=== PATIENT | female | born 1995 | race African-American/Black ===

== ENCOUNTER 2017-06-23 15:57 | Emergency (ER) | payer BC | END 2017-06-23 17:54 | disposition home or self-care (01) | LOC: D.ER 15:57 | DX: J11.1 Influenza due to unidentified influenza virus with other respiratory manifestations (principal); E11.9 Type 2 diabetes mellitus without complications; Z79.4 Long term (current) use of insulin ==

== ENCOUNTER 2019-03-20 11:59 | Emergency (ER) | payer SELFPAY ==
[~2019-03-20] VITALS: Ht 157.5 cm; Wt 72.5 kg
[2019-03-20 12:03] VITALS: BP 130/69; Ht 157.5 cm; Wt 72.5 kg
[2019-03-20 13:26] LABS: HCG SERUM NEGATIVE (NEGATIVE)
[2019-03-20 13:33] LABS: ALBUMIN 3.2 g/dL (3.4-5.0); ANION GAP 13.4 mmol/L (8-16); BILIRUBIN - TOTAL 0.17 mg/dL (0.2-1.3); CALCIUM 8.6 mg/dL (8.5-10.1); CARBON DIOXIDE 27.2 mmol/L (21.0-32.0); POTASSIUM - SERUM 4.6 mmol/L (3.5-5.1); PROTEIN - SERUM 7.4 g/dL (6.4-8.2)
[2019-03-20 13:57] LABS: BASOPHILS 0.3 % (0-2); EOSINOPHILS 2.9 % (0-7); HEMATOCRIT 38.8 % (36.0-48.0); HEMOGLOBIN 12.9 g/dL (12-16); IMMATURE GRANULOCYTES 0.3 % (0-5); MCH 29.3 pg (26.0-34.0); MCHC 33.2 g/dL (31.0-37.0); MONOCYTES 7.8 % (2-11); NEUTROPHILS 58.7 % (40-80); PLATELET COUNT 368 10x3/uL (130-400); RBC 4.41 10x6/uL (4.00-5.40); RDW 13.6 % (11.5-14.5); WBC 8.9 10x3/uL (4.8-10.8)
[2019-03-20 14:21] LABS: APPEARANCE HAZY (CLEAR); COLOR STRAW (YELLOW)
[2019-03-20 14:22] LABS: BILIRUBIN NEGATIVE (NEGATIVE); GLUCOSE 1000 mg/dL (NEGATIVE); KETONE NEGATIVE (NEGATIVE); NITRITE NEGATIVE (NEGATIVE); PROTEIN NEGATIVE (NEGATIVE); UROBILINOGEN NORMAL (NORMAL)
[2019-03-20 14:23] LABS: BACTERIA FEW /hpf (NEGATIVE); EPITHELIAL CELLS 0-5 /hpf (0-5); RED CELLS - URINE 0-5 /hpf (0-5); WHITE CELLS - URINE 0-5 /hpf (NEGATIVE); YEAST <1+ /hpf (NONE SEEN)
[2019-03-21 09:11] LABS: HEPATITIS C ANTIBODY <0.1 S/CO RAT (0.0-0.9)
[2019-03-23 17:08] LABS: CHLAMYDIA TRACHOMATIS, NAA Positive (Negative)
== END 2019-03-20 14:04 | disposition left against medical advice (07) ==
LOC: D.ER 11:59
PROVIDERS: Family Medicine
DX: Z20.2 Contact with and (suspected) exposure to infections with a predominantly sexual mode of transmission (principal)

== ENCOUNTER 2020-08-28 19:20 | Emergency (ER) | payer BC ==
[~2020-08-28] VITALS: Ht 157.5 cm; Wt 82.3 kg
[~2020-08-28 19:20] MED LIST: KEFLEX500 MG PO; LANTUS INS100 UNITS/ SC; LISINOPRIL10 MG PO
[2020-08-28 19:41] VITALS: Ht 157.5 cm; Wt 82.3 kg
[2020-08-28 20:12] LABS: UDS - AMPHET NEGATIVE QUAL (NEGATIVE); UDS - BARB NEGATIVE QUAL (NEGATIVE); UDS - BENZO NEGATIVE QUAL (NEGATIVE); UDS - COCAINE NEGATIVE QUAL (NEGATIVE); UDS - OPIATE NEGATIVE QUAL (NEGATIVE); UDS - PCP NEGATIVE QUAL (NEGATIVE); UDS - THC POSITIVE QUAL (NEGATIVE)
[2020-08-28 20:38] LABS: BILIRUBIN NEGATIVE (NEGATIVE); KETONE NEGATIVE (NEGATIVE); NITRITE NEGATIVE (NEGATIVE); UROBILINOGEN NORMAL mg/dL (< 2)
[2020-08-28 20:40] LABS: BACTERIA FEW HPF (NONE SEEN); SQUAMOUS EPITHELIAL 0-5 HPF (0-4); WHITE CELLS - URINE 0-5 HPF (0-4)
[2020-08-28 21:00] LABS: BASOPHILS 0.2 % (0-2); EOSINOPHILS 4.3 % (0-7); HEMOGLOBIN 11.9 g/dL (12-16); IMMATURE GRANULOCYTES 0.3 % (0-5); LYMPHOCYTE ABS# 3.12 10x3/uL (1.18-3.74); LYMPHOCYTES 32.4 % (15-50); MCH 27.8 pg (26.0-34.0); MCHC 33.1 g/dL (31.0-37.0); MCV 84.1 fL (80.0-100.0); MONOCYTES 6.5 % (2-11); NEUTROPHIL ABS# 5.43 10x3/uL (1.56-6.13); NEUTROPHILS 56.3 % (40-80); RBC 4.28 10x6/uL (4.00-5.40); RDW 14.7 % (11.5-14.5); WBC 9.6 10x3/uL (4.8-10.8)
[2020-08-28 21:16] LABS: HCG SERUM NEGATIVE (NEGATIVE)
[2020-08-28 21:18] LABS: PLATELET COUNT 350 10x3/uL (130-400)
[2020-08-28 21:19] LABS: ALBUMIN 2.5 g/dL (3.4-5.0); ANION GAP 11.1 mmol/L (8-16); CALCIUM 8.8 mg/dL (8.5-10.1); CARBON DIOXIDE 26.1 mmol/L (21.0-32.0); MAGNESIUM - SERUM 1.9 mg/dL (1.8-2.4); POTASSIUM - SERUM 4.2 mmol/L (3.5-5.1); PROTEIN - SERUM 6.7 g/dL (6.4-8.2)
[2020-08-28 21:23] LABS: BILIRUBIN - TOTAL 0.07 mg/dL (0.2-1.3)
[2020-08-28 21:48] VITALS: BP 161/96
== END 2020-08-28 22:17 | disposition home or self-care (01) ==
LOC: D.ER 19:20
PROVIDERS: Family Medicine
DX: E11.65 Type 2 diabetes mellitus with hyperglycemia (principal); I10 Essential (primary) hypertension; Z91.14 Patient's other noncompliance with medication regimen; Z79.4 Long term (current) use of insulin

== ENCOUNTER 2020-09-26 17:06 | Emergency (ER) | payer BC ==
[~2020-09-26] VITALS: Ht 157.5 cm; Wt 84.1 kg
[2020-09-26 17:25] VITALS: Ht 157.5 cm; Wt 84.1 kg
[2020-09-26 18:12] LABS: BASOPHILS 0.3 % (0-2); EOSINOPHILS 3.4 % (0-7); HEMATOCRIT 31.9 % (36.0-48.0); HEMOGLOBIN 10.8 g/dL (12-16); IMMATURE GRANULOCYTES 0.2 % (0-5); LYMPHOCYTES 28.5 % (15-50); MCH 28.4 pg (26.0-34.0); MCHC 33.9 g/dL (31.0-37.0); MCV 83.9 fL (80.0-100.0); MEAN PLATELET VOLUME 10.5 fL (7.4-10.4); NEUTROPHIL ABS# 5.43 10x3/uL (1.56-6.13); NEUTROPHILS 59.6 % (40-80); PLATELET COUNT 325 10x3/uL (130-400); RDW 14.1 % (11.5-14.5); WBC 9.1 10x3/uL (4.8-10.8)
[2020-09-26 18:22] LABS: ALBUMIN 2.3 g/dL (3.4-5.0); BILIRUBIN - TOTAL 0.11 mg/dL (0.2-1.3); CALCIUM 8.4 mg/dL (8.5-10.1); CARBON DIOXIDE 29.1 mmol/L (21.0-32.0); POTASSIUM - SERUM 4.1 mmol/L (3.5-5.1); PROTEIN - SERUM 6.3 g/dL (6.4-8.2)
[2020-09-26 18:52] LABS: BILIRUBIN NEGATIVE (NEGATIVE); KETONE NEGATIVE (NEGATIVE); NITRITE NEGATIVE (NEGATIVE); UROBILINOGEN NORMAL mg/dL (< 2)
[2020-09-26 18:53] LABS: BACTERIA FEW HPF (NONE SEEN); HCG URINE NEGATIVE (NEGATIVE); SQUAMOUS EPITHELIAL 0-5 HPF (0-4)
[2020-09-26] MEDS ORDERED: OMNICEF300 MG PO (19:23)
[2020-09-26] MEDS ORDERED: LANTUS INS100 UNITS/ SC (19:23)
[2020-09-26 20:39] VITALS: BP 178/111
== END 2020-09-26 20:25 | disposition home or self-care (01) ==
LOC: D.ER 17:06
PROVIDERS: Family Medicine
DX: E11.65 Type 2 diabetes mellitus with hyperglycemia (principal); N39.0 Urinary tract infection, site not specified; Z91.14 Patient's other noncompliance with medication regimen; I10 Essential (primary) hypertension; Z79.4 Long term (current) use of insulin

== ENCOUNTER 2020-10-06 13:33 | Emergency (ER) | payer BC ==
[~2020-10-06] VITALS: Ht 157.5 cm; Wt 81.8 kg
[~2020-10-06 13:33] MED LIST changes: +OMNICEF300 MG PO
[2020-10-06 13:57] VITALS: Ht 157.5 cm; Wt 81.8 kg
[2020-10-06 15:03] LABS: BASOPHILS 0.3 % (0-2); EOSINOPHILS 0.9 % (0-7); HEMATOCRIT 35.5 % (36.0-48.0); HEMOGLOBIN 12.3 g/dL (12-16); IMMATURE GRANULOCYTES 0.3 % (0-5); LYMPHOCYTE ABS# 1.76 10x3/uL (1.18-3.74); LYMPHOCYTES 15.1 % (15-50); MCH 28.8 pg (26.0-34.0); MCHC 34.6 g/dL (31.0-37.0); MCV 83.1 fL (80.0-100.0); MEAN PLATELET VOLUME 10.9 fL (7.4-10.4); MONOCYTES 4.4 % (2-11); NEUTROPHIL ABS# 9.17 10x3/uL (1.56-6.13); RBC 4.27 10x6/uL (4.00-5.40); RDW 13.7 % (11.5-14.5); WBC 11.6 10x3/uL (4.8-10.8)
[2020-10-06 15:04] LABS: PLATELET COUNT 500 10x3/uL (130-400)
[2020-10-06 15:35] LABS: ALBUMIN 2.7 g/dL (3.4-5.0); ALKALINE PHOSPHATASE 105 U/L (30-120); ALT (SGPT) 22 U/L (10-68); BILIRUBIN - TOTAL 0.26 mg/dL (0.2-1.3); CALC OSMOLALITY 303 mosm/kg (275-300); CALCIUM 9.4 mg/dL (8.5-10.1); CARBON DIOXIDE 25.1 mmol/L (21.0-32.0); CHLORIDE - SERUM 104 mmol/L (98-107); CREATININE - SERUM 0.9 mg/dL (0.6-1.3); HCG - QUANTITATIVE (MATERNAL) 0 mIU/mL; MAGNESIUM - SERUM 1.9 mg/dL (1.8-2.4); SODIUM 141 mmol/L (136-145); UREA NITROGEN 19 mg/dL (7-18); eGFR NON AFRICAN AMERICAN 81 mL/min (90-120)
[2020-10-06 15:44] LABS: GLUCOSE 472 mg/dL (74-106)
[2020-10-06] MEDS ORDERED: FLAGYL500 MG PO (17:02)
[2020-10-06] MEDS ORDERED: PROTONIX40 MG PO (17:02)
[2020-10-06] MEDS ORDERED: CIPRO500 MG PO (17:02)
[2020-10-06] MEDS ORDERED: ZOFRAN ODT4 MG/UDTAB PO (17:02)
[2020-10-06 17:40] VITALS: BP 146/79
== END 2020-10-06 17:40 | disposition home or self-care (01) ==
LOC: D.ER 13:33
PROVIDERS: Family Medicine
DX: K52.9 Noninfective gastroenteritis and colitis, unspecified (principal); K20.90 Esophagitis, unspecified without bleeding; E11.9 Type 2 diabetes mellitus without complications; Z79.4 Long term (current) use of insulin

== ENCOUNTER 2020-11-18 16:15 | Observation (INO) | payer BC ==
[~2020-11-18] VITALS: Ht 157.5 cm; Wt 81.8 kg
[~2020-11-18 16:15] MED LIST changes: +CIPRO500 MG PO; +FLAGYL500 MG PO; +PROTONIX40 MG PO; +ZOFRAN ODT4 MG/UDTAB PO
--- NOTE | 2020-11-18 16:42 | NUR ---
PATIENT BLOOD GLUCOSE LEVEL IS 335
[2020-11-18 17:33] LABS: BASOPHILS 0.5 % (0-2); EOSINOPHILS 1.2 % (0-7); HEMATOCRIT 36.4 % (36.0-48.0); HEMOGLOBIN 11.8 g/dL (12-16); LYMPHOCYTES 17.5 % (15-50); MCH 27.7 pg (26.0-34.0); MCHC 32.4 g/dL (31.0-37.0); MCV 85.4 fL (80.0-100.0); MEAN PLATELET VOLUME 8.8 fL (7.4-10.4); MONOCYTES 5.7 % (2-11); NEUTROPHILS 75.1 % (40-80); RBC 4.26 10x6/uL (4.00-5.40); RDW 14.6 % (11.5-14.5); WBC 10.7 10x3/uL (4.8-10.8)
[2020-11-18 17:40] LABS: PLATELET COUNT 357 10x3/uL (130-400)
[2020-11-18 17:50] LABS: ALBUMIN 2.2 g/dL (3.4-5.0); ALKALINE PHOSPHATASE 95 U/L (30-120); ALT (SGPT) 20 U/L (10-68); BILIRUBIN - TOTAL 0.25 mg/dL (0.2-1.3); CALC OSMOLALITY 284 mosm/kg (275-300); CALCIUM 8.3 mg/dL (8.5-10.1); CARBON DIOXIDE 27.7 mmol/L (21.0-32.0); CHLORIDE - SERUM 99 mmol/L (98-107); CREATININE - SERUM 0.9 mg/dL (0.6-1.3); POTASSIUM - SERUM 4.1 mmol/L (3.5-5.1); PROTEIN - SERUM 6.4 g/dL (6.4-8.2); SODIUM 132 mmol/L (136-145); UREA NITROGEN 13 mg/dL (7-18); eGFR NON AFRICAN AMERICAN 81 mL/min (90-120)
[2020-11-18 17:53] LABS: GLUCOSE 452 mg/dL (74-106)
[2020-11-18 18:58] LABS: BILIRUBIN NEGATIVE (NEGATIVE); KETONE MODERATE mg/dL (NEGATIVE); NITRITE NEGATIVE (NEGATIVE); UROBILINOGEN NORMAL mg/dL (< 2)
[2020-11-18 18:59] LABS: WHITE CELLS - URINE 25-50 HPF (0-4)
[2020-11-18 19:00] LABS: BACTERIA MANY HPF (NONE SEEN)
[2020-11-18 20:18] LABS: HCG URINE NEGATIVE (NEGATIVE)
[2020-11-18 21:36] LABS: APTT 24.4 SECONDS (22.8-39.4); INR 1.16 (0.85-1.17); PROTIME 13.7 SECONDS (11.6-15.0)
[2020-11-18 21:50] LABS: AMYLASE - SERUM 45 U/L (25-115); CREATINE KINASE 107 UL (21-215); LIPASE 101 U/L (73-393); MAGNESIUM - SERUM 1.6 mg/dL (1.8-2.4)
[2020-11-18 21:52] LABS: TROPONIN-I < 0.017 ng/mL (0.000-0.060)
--- NOTE | 2020-11-18 23:00 | NUR ---
PT RECEIVED TO 0 AA&O, FAMILY/SO AT BEDSIDE. PT WITH NO ACUTE DSTRESS. PIV LEFT AC. PT DENIES ANY CURRENT ISSUES. VSS WILL CONTINUE TO MONITOR
[2020-11-18 23:40] VITALS: BP 155/87; Ht 157.5 cm; Wt 81.8 kg
[2020-11-18 23:43] LABS: UDS - AMPHET NEGATIVE QUAL (NEGATIVE); UDS - BARB NEGATIVE QUAL (NEGATIVE); UDS - BENZO NEGATIVE QUAL (NEGATIVE); UDS - COCAINE NEGATIVE QUAL (NEGATIVE); UDS - OPIATE NEGATIVE QUAL (NEGATIVE); UDS - PCP NEGATIVE QUAL (NEGATIVE); UDS - THC POSITIVE QUAL (NEGATIVE)
[2020-11-19 04:00] VITALS: BP 114/79
[2020-11-19 07:24] LABS: BASOPHILS 0.4 % (0-2); EOSINOPHILS 1.8 % (0-7); LYMPHOCYTES 26.8 % (15-50); MCH 28.5 pg (26.0-34.0); MCHC 33.5 g/dL (31.0-37.0); MEAN PLATELET VOLUME 8.9 fL (7.4-10.4); MONOCYTES 6.2 % (2-11); NEUTROPHILS 64.8 % (40-80); PLATELET COUNT 292 10x3/uL (130-400); RDW 14.2 % (11.5-14.5); WBC 8.9 10x3/uL (4.8-10.8)
[2020-11-19 07:45] LABS: ALBUMIN 1.7 g/dL (3.4-5.0); ALKALINE PHOSPHATASE 73 U/L (30-120); ALT (SGPT) 15 U/L (10-68); BILIRUBIN - TOTAL 0.19 mg/dL (0.2-1.3); CALC OSMOLALITY 280 mosm/kg (275-300); CALCIUM 7.3 mg/dL (8.5-10.1); CARBON DIOXIDE 23.9 mmol/L (21.0-32.0); CHLORIDE - SERUM 106 mmol/L (98-107); CREATININE - SERUM 0.7 mg/dL (0.6-1.3); MAGNESIUM - SERUM 1.5 mg/dL (1.8-2.4); POTASSIUM - SERUM 3.6 mmol/L (3.5-5.1); SODIUM 136 mmol/L (136-145); UREA NITROGEN 10 mg/dL (7-18); eGFR NON AFRICAN AMERICAN > 90 mL/min (90-120)
[2020-11-19 07:46] LABS: GLUCOSE 280 mg/dL (74-106)
[2020-11-19 07:54] LABS: HEMATOCRIT 27.7 % (36.0-48.0); HEMOGLOBIN 9.3 g/dL (12-16); RBC 3.26 10x6/uL (4.00-5.40)
--- NOTE | 2020-11-19 08:10 | NUR ---
PT LYING IN BED. FAMILY MEMBER AT BEDSIDE. RR EVEN NONLABORED, IV CDI. ALL NEEDS MET AT THIS TIME. CLWR.
[2020-11-19 09:49] VITALS: BP 160/93
--- NOTE | 2020-11-19 11:30 | NUR ---
RECEIVED REPORT FROM MAGO ABERNATHY. PT LYING IN BED WITH EYES CLOSED. RESP EVEN AND UNLABORED. RAISES TO VERBAL STIMULI. AAO X4. DENIES NEEDS AT THIS TIME. CLIR. BED IN LOWEST POSITION. SIDE RAILS X2
[2020-11-19 12:00] VITALS: BP 130/80
[2020-11-19] MEDS ORDERED: PROTONIX40 MG PO (13:10)
[2020-11-19] MEDS ORDERED: LANTUS INS100 UNITS/ SC (13:12)
[2020-11-19] MEDS ORDERED: CIPRO500 MG PO (13:13)
--- NOTE | 2020-11-19 14:41 | NUR ---
DC INSTRUCTIONS GIVEN. ESCORTED TO CAR BY W/C.
== END 2020-11-19 14:42 | disposition home or self-care (01) ==
LOC: D.ER 16:15 → D.M2 22:03 → OBSVTIME 22:14 → D.M2 11-19 14:42
PROVIDERS: Student in an Organized Health Care Education/Training Program; ADMIT Emergency Medicine; ATTEND Emergency Medicine
DX: E10.65 Type 1 diabetes mellitus with hyperglycemia (principal); R11.2 Nausea with vomiting, unspecified; N39.0 Urinary tract infection, site not specified; Z79.4 Long term (current) use of insulin; D64.9 Anemia, unspecified; E87.1 Hypo-osmolality and hyponatremia; F41.8 Other specified anxiety disorders; E10.40 Type 1 diabetes mellitus with diabetic neuropathy, unspecified

== ENCOUNTER 2020-12-06 19:20 | Observation (INO) | payer BC ==
[~2020-12-06] VITALS: Ht 157.5 cm; Wt 83.0 kg
[2020-12-06 20:16] LABS: BASOPHILS 0.7 % (0-2); CALC OSMOLALITY 290 mosm/kg (275-300); CALCIUM 8.8 mg/dL (8.5-10.1); CARBON DIOXIDE 28.8 mmol/L (21.0-32.0); CHLORIDE - SERUM 104 mmol/L (98-107); CREATININE - SERUM 0.9 mg/dL (0.6-1.3); EOSINOPHILS 2.2 % (0-7); HEMATOCRIT 36.3 % (36.0-48.0); HEMOGLOBIN 12.1 g/dL (12-16); LYMPHOCYTES 10.5 % (15-50); MCH 28.6 pg (26.0-34.0); MCHC 33.3 g/dL (31.0-37.0); MCV 85.8 fL (80.0-100.0); MEAN PLATELET VOLUME 8.2 fL (7.4-10.4); MONOCYTES 9.3 % (2-11); NEUTROPHILS 77.3 % (40-80); PLATELET COUNT 509 10x3/uL (130-400); RBC 4.23 10x6/uL (4.00-5.40); RDW 14.9 % (11.5-14.5); SODIUM 138 mmol/L (136-145); UREA NITROGEN 13 mg/dL (7-18); eGFR NON AFRICAN AMERICAN 81 mL/min (90-120)
[2020-12-06 20:17] LABS: GLUCOSE 363 mg/dL (74-106)
[2020-12-06 20:22] LABS: ALBUMIN 2.4 g/dL (3.4-5.0); ALKALINE PHOSPHATASE 112 U/L (30-120); ALT (SGPT) 22 U/L (10-68); AMYLASE - SERUM 37 U/L (25-115); BILIRUBIN - TOTAL 0.29 mg/dL (0.2-1.3); LIPASE 82 U/L (73-393); PROTEIN - SERUM 6.8 g/dL (6.4-8.2)
[2020-12-06 20:40] VITALS: BP 174/111
[2020-12-06 21:05] LABS: BILIRUBIN NEGATIVE (NEGATIVE); KETONE 1+ mg/dL (< 1+); NITRITE NEGATIVE (NEGATIVE); PH 7.5 (5.0-8.0); SQUAMOUS EPITHELIAL 19 HPF (0-4); UROBILINOGEN NORMAL mg/dL (< 2); WHITE CELLS - URINE 14 HPF (0-4)
[2020-12-06 21:06] LABS: HCG URINE NEGATIVE (NEGATIVE)
[2020-12-06 21:47] VITALS: BP 188/108
[2020-12-07] VITALS (7 sets, daily range): BP systolic 123–193; BP diastolic 58–119; BMI 33.5
[2020-12-07 00:51] LABS: UDS - AMPHET NEGATIVE QUAL (NEGATIVE); UDS - BARB NEGATIVE QUAL (NEGATIVE); UDS - BENZO NEGATIVE QUAL (NEGATIVE); UDS - COCAINE NEGATIVE QUAL (NEGATIVE); UDS - OPIATE NEGATIVE QUAL (NEGATIVE); UDS - PCP NEGATIVE QUAL (NEGATIVE); UDS - THC POSITIVE QUAL (NEGATIVE)
--- NOTE | 2020-12-07 00:56 | NUR ---
PT WITH N/V STILL AND INCREASED BP. AWARE. PT STATES SHE TAKES BP MEDS AND DID NOT TAKE THEM TODAY D/T N/V.
[2020-12-07 05:32] LABS: BASOPHILS 0.2 % (0-2); EOSINOPHILS 0.6 % (0-7); HEMATOCRIT 34.5 % (36.0-48.0); HEMOGLOBIN 11.2 g/dL (12-16); LYMPHOCYTES 9.5 % (15-50); MCHC 32.5 g/dL (31.0-37.0); MCV 86.1 fL (80.0-100.0); MEAN PLATELET VOLUME 8.4 fL (7.4-10.4); MONOCYTES 7.2 % (2-11); NEUTROPHILS 82.5 % (40-80); PLATELET COUNT 448 10x3/uL (130-400); RBC 4.01 10x6/uL (4.00-5.40); RDW 14.9 % (11.5-14.5); WBC 9.2 10x3/uL (4.8-10.8)
[2020-12-07 05:45] LABS: ALBUMIN 2.1 g/dL (3.4-5.0); ALKALINE PHOSPHATASE 96 U/L (30-120); ALT (SGPT) 22 U/L (10-68); BILIRUBIN - TOTAL 0.22 mg/dL (0.2-1.3); CALC OSMOLALITY 287 mosm/kg (275-300); CALCIUM 7.9 mg/dL (8.5-10.1); CARBON DIOXIDE 22.5 mmol/L (21.0-32.0); CHLORIDE - SERUM 103 mmol/L (98-107); CREATININE - SERUM 0.9 mg/dL (0.6-1.3); GLUCOSE 358 mg/dL (74-106); POTASSIUM - SERUM 4.2 mmol/L (3.5-5.1); PROTEIN - SERUM 6.1 g/dL (6.4-8.2); SODIUM 137 mmol/L (136-145); UREA NITROGEN 12 mg/dL (7-18); eGFR NON AFRICAN AMERICAN 81 mL/min (90-120)
--- NOTE | 2020-12-07 11:24 | NUR ---
HUNG IV ABX, TOLERATING WELL. 6 UNITS INSULIN PER SLIDING SCALE FOR SUGAR OF 288. RESTING COMFORTABLY. DENIES NEEDS AT THIS TIME. WILL CONTINUE POC.
--- NOTE | 2020-12-07 16:34 | NUR ---
10UNITS INSULIN PER SLIDING SCALE FOR SUGAR OF 387. RESTING IN BED. DENIES NEEDS. WILL CONTINUE POC.
[2020-12-08 06:30] LABS: BASOPHILS 0.3 % (0-2); EOSINOPHILS 6.6 % (0-7); HEMATOCRIT 29.3 % (36.0-48.0); HEMOGLOBIN 9.6 g/dL (12-16); LYMPHOCYTES 37.5 % (15-50); MCHC 32.6 g/dL (31.0-37.0); MCV 85.9 fL (80.0-100.0); MEAN PLATELET VOLUME 8.3 fL (7.4-10.4); NEUTROPHILS 47.6 % (40-80); PLATELET COUNT 424 10x3/uL (130-400); RBC 3.41 10x6/uL (4.00-5.40); RDW 14.9 % (11.5-14.5); WBC 10.2 10x3/uL (4.8-10.8)
[2020-12-08 07:02] LABS: ALBUMIN 1.8 g/dL (3.4-5.0); BILIRUBIN - TOTAL 0.11 mg/dL (0.2-1.3); CALCIUM 7.4 mg/dL (8.5-10.1); CARBON DIOXIDE 25.4 mmol/L (21.0-32.0); CREATININE - SERUM 1.1 mg/dL (0.6-1.3); PROTEIN - SERUM 5.1 g/dL (6.4-8.2)
[2020-12-08 07:03] LABS: ANION GAP 9.8 mmol/L (8-16); POTASSIUM - SERUM 3.2 mmol/L (3.5-5.1)
--- NOTE | 2020-12-08 08:51 | NUR ---
AAOX4 UPON ENTERING. ADMINISTERED MORNING MEDICATION. LAYING IN BED. DENIES ANY NEEDS AT THIS TIME. BED IN LOWEST POSITION, BED RAILS X2, CALL LIGHT WITHIN REACH. WILL CONTINUE POC ASSESSMENT PERFORMED
[2020-12-08 09:23] VITALS: BP 153/107
--- NOTE | 2020-12-08 10:33 | NUR ---
UNHOOKED AND GETTING INTO SHOWER.
--- NOTE | 2020-12-08 12:03 | NUR ---
6 UNITS INSULIN PER SLIDING SCALE FOR SUGAR OF 270. UNABLE TO ADMINISTERED IV MEDS AT THIS TIME. IV INFILTRATED. REMOVED FROM LEFT HAND, COVERED WITH GAUZE AND TAPE. TOLERATED WELL. WILL RESITE. DENIES FURTHER NEEDS AT THIS TIME. WILL CONTINUE POC.
[2020-12-08] MEDS ORDERED: LEVOFLOXACIN500 MG PO (12:29)
[2020-12-08] MEDS ORDERED: FLORAJEN DIGES1 EACH PO (12:29)
[2020-12-08] MEDS ORDERED: FLAGYL500 MG PO (12:29)
[2020-12-08 12:55] VITALS: BP 154/101
[2020-12-08 13:34] VITALS: Ht 157.5 cm; Wt 83.0 kg
--- NOTE | 2020-12-08 15:04 | NUR ---
ALL NECESSARY DISCHARGE PAPERWORK SIGNED AT THIS TIME. IV ALREADY OUT. DRESSING SELF. ESCORTED OUT VIA WHEELCHAIR. HOME WITH FAMILY. DENIES FURTHER NEEDS FROM HOSPITAL/STAFF.
== END 2020-12-08 15:05 | disposition home or self-care (01) ==
LOC: D.ER 19:20 → D.EDHOLD 12-07 03:14 → D.MS 12-07 03:14 → OBSVTIME 12-07 03:14 → D.MS 12-07 09:10
PROVIDERS: Emergency Medicine; ADMIT Family Medicine; ATTEND Family Medicine
DX: K52.9 Noninfective gastroenteritis and colitis, unspecified (principal); F12.10 Cannabis abuse, uncomplicated; E10.9 Type 1 diabetes mellitus without complications; R10.9 Unspecified abdominal pain

== ENCOUNTER 2020-12-09 23:22 | Emergency (ER) | payer BC ==
[~2020-12-09] VITALS: Ht 157.5 cm; Wt 83.2 kg
[~2020-12-09 23:22] MED LIST changes: +FLORAJEN DIGES1 EACH PO; +LEVOFLOXACIN500 MG PO
[2020-12-09 23:38] VITALS: BP 191/118; Ht 157.5 cm; Wt 83.2 kg
[2020-12-10 00:36] LABS: EOSINOPHILS 3.1 % (0-7); HEMATOCRIT 34.7 % (36.0-48.0); HEMOGLOBIN 11.4 g/dL (12-16); LYMPHOCYTES 25.8 % (15-50); MCH 28.2 pg (26.0-34.0); MCHC 32.9 g/dL (31.0-37.0); MCV 85.8 fL (80.0-100.0); MONOCYTES 6.7 % (2-11); NEUTROPHILS 63.4 % (40-80); RBC 4.04 10x6/uL (4.00-5.40); WBC 12.4 10x3/uL (4.8-10.8)
[2020-12-10 00:40] LABS: CALCIUM 8.4 mg/dL (8.5-10.1); CARBON DIOXIDE 28.1 mmol/L (21.0-32.0); CHLORIDE - SERUM 102 mmol/L (98-107); POTASSIUM - SERUM 3.3 mmol/L (3.5-5.1); SODIUM 138 mmol/L (136-145)
[2020-12-10 00:41] LABS: PLATELET COUNT 551 10x3/uL (130-400)
[2020-12-10 00:42] LABS: CALC OSMOLALITY 283 mosm/kg (275-300); CREATININE - SERUM 0.8 mg/dL (0.6-1.3); GLUCOSE 260 mg/dL (74-106); UREA NITROGEN 9 mg/dL (7-18); eGFR NON AFRICAN AMERICAN > 90 mL/min (90-120)
[2020-12-10 00:55] LABS: ALKALINE PHOSPHATASE 98 U/L (30-120); ALT (SGPT) 26 U/L (10-68); BILIRUBIN - TOTAL 0.22 mg/dL (0.2-1.3); LIPASE 144 U/L (73-393); MAGNESIUM - SERUM 1.7 mg/dL (1.8-2.4)
[2020-12-10 00:57] LABS: ALBUMIN 2.4 g/dL (3.4-5.0); PROTEIN - SERUM 6.7 g/dL (6.4-8.2)
[2020-12-10 00:58] LABS: C-REACTIVE PROTEIN < 0.2 mg/dL (0.0-0.9)
== END 2020-12-10 02:06 | disposition home or self-care (01) ==
LOC: D.ER 23:22
PROVIDERS: Family Medicine
DX: E11.9 Type 2 diabetes mellitus without complications (principal); Z79.4 Long term (current) use of insulin; R11.2 Nausea with vomiting, unspecified; I10 Essential (primary) hypertension